=== PATIENT | female | born 1990 | race Caucasian/White ===

== ENCOUNTER 2018-05-23 18:00 | Emergency (ER) | payer OTHER ==
[~2018-05-23] VITALS: Ht 162.6 cm; Wt 65.8 kg
[~2018-05-23 18:00] MED LIST: BACTRIM DS TAB1 EACH PO; CIPROFLOXACIN500 M1 PO; DELTASONE20 MG PO; DIFLUCAN150 MG PO; IMITREX20 MG PO; MIRENA1 EACH IY; NUVARING VAGIN1 EACH VG; SIMETHICON CHEW80 M1 PO; ZOFRAN ODT4 MG PO; ZOFRAN4 MG PO
[2018-05-23 18:32] LABS: URINE BILIRUBIN NEGATIVE (Negative); URINE BLOOD 2+ (Negative); URINE CLARITY CLEAR; URINE COLOR YELLOW; URINE GLUCOSE-RANDOM NEGATIVE (Negative); URINE KETONES NEGATIVE (Negative); URINE LEUKOCYTES-REFLEX 1+ (Negative); URINE NITRITE-REFLEX POSITIVE (Negative); URINE PROTEIN TRACE (Negative); URINE SPECIFIC GRAVITY >= 1.030 (1.005-1.030); URINE UROBILINOGEN 0.2 E.U./dl (0.2-1.0)
[2018-05-23 18:37] LABS: BACTERIA-REFLEX >30 Many /HPF (None Seen); CASTS None Seen /LPF (None Seen); SQUAMOUS >10 Many /LPF (0-3); URINE RBC >20 Many /HPF (0-2); URINE WBC-REFLEX >25 Many /HPF (0-5)
[2018-05-23 18:38] LABS: CRYSTALS None Seen /LPF (None Seen)
[2018-05-23] MEDS ORDERED: ZOFRAN ODT4 MG PO (18:53)
[2018-05-23] MEDS ORDERED: ACETAMINOPHEN-1 EAC1 PO (18:53)
[2018-05-23] MEDS ORDERED: CIPRO500 MG PO (18:53)
[2018-05-23] MEDS ORDERED: PHENAZOPYRIDIN200 M2 PO (18:55)
[2018-05-23 19:13] VITALS: BP 109/59
== END 2018-05-23 19:13 | disposition home or self-care (01) ==
LOC: M.ERS 18:00
PROVIDERS: Physician Assistant
DX: N39.0 Urinary tract infection, site not specified (principal); G43.909 Migraine, unspecified, not intractable, without status migrainosus; M79.7 Fibromyalgia